=== PATIENT | male | born 1975 | race Caucasian/White ===

== ENCOUNTER 2018-05-05 16:07 | Emergency (ER) | payer SELFPAY ==
[~2018-05-05] VITALS: Ht 175.3 cm; Wt 89.5 kg
[2018-05-05] MEDS ORDERED: FentaNYL CITRATE-PF 100 MCG/2 ML VIAL IVP ONE (17:45)
[2018-05-05] MEDS ORDERED: KETOROLAC TROMETHAMINE 30 MG/ML VIAL IVP ONE (17:45)
[2018-05-05] MEDS ORDERED: ONDANSETRON HCL 4 MG/2 ML VIAL IVP ONE (17:45)
[2018-05-05 21:25] VITALS: BP 118/77
== END 2018-05-05 21:33 | disposition home or self-care (01) ==
LOC: EMS 16:08
DX: S52.125A Nondisplaced fracture of head of left radius, initial encounter for closed fracture (principal); S62.112A Displaced fracture of triquetrum [cuneiform] bone, left wrist, initial encounter for closed fracture; W11.XXXA Fall on and from ladder, initial encounter; Y93.89 Activity, other specified; Y92.89 Other specified places as the place of occurrence of the external cause; Y99.8 Other external cause status
CPT/HCPCS: 29105; 71045; 72170; 73080; 73090; 73110; 73130; 96374; 96375; 99283; J1885; J2405; J3010